=== PATIENT | male | born 1990 | race Caucasian/White ===

== ENCOUNTER 2024-12-19 18:37 | Inpatient (IN) | payer OTHER ==
[~2024-12-19] VITALS: Ht 172.7 cm; Wt 95.5 kg
[2024-12-19 19:22] LABS: BASOPHILS % (AUTO) 0.7 % (0.0-2.0); EOSINOPHILS % (AUTO) 7.3 % (1.0-6.0); HEMATOCRIT 45.3 % (41-53); HEMOGLOBIN 15.4 g/dL (13.5-17.5); LYMPHOCYTES # (AUTO) 2.7 K/uL (1.0-4.8); LYMPHOCYTES % (AUTO) 26.7 % (22.0-44.0); MEAN CORPUSCULAR HEMOGLOBIN 28.1 pg (26.0-34.0); MEAN CORPUSCULAR HGB CONC 33.9 G/dL (31.0-37.0); MEAN CORPUSCULAR VOLUME 83 fL (80-100); MONOCYTES # (AUTO) 0.8 K/uL (0.1-1.0); NEUTROPHILS # (AUTO) 5.9 K/uL (1.8-7.7); NEUTROPHILS % (AUTO) 57.3 % (40.0-70.0); PLATELET COUNT (AUTO) 204 K/uL (150-450); RED BLOOD CELL COUNT(AUTO) 5.47 MIL/uL (4.50-5.90); RED CELL DISTRIBUTION WIDTH 13.3 % (11.5-14.5); WHITE BLOOD COUNT (AUTO) 10.2 K/uL (4.5-11.0)
[2024-12-19 19:27] LABS: ANION GAP 1 mmol/L (8-16); CALCIUM, TOTAL 9.3 mg/dL (8.8-10.5); CARBON DIOXIDE 30 mmol/L (22-29); CHLORIDE 113 mmol/L (98-107); GLOMERULAR FILTR. RATE CALC > 60 mL/min (>60); GLUCOSE,RANDOM 132 mg/dL (70-110); POTASSIUM 3.7 mmol/L (3.5-5.1); SODIUM SERUM 144 mmol/L (136-145); UREA NITROGEN, BLOOD 12 mg/dL (7-18)
[2024-12-19 19:53] LABS: ALCOHOL, BLOOD (SERUM) < 3 mg/dL (0-10)
[2024-12-19 20:03] LABS: COVID AG,FIA SOURCE NASAL SWAB
[2024-12-19 20:56] LABS: SARS-COV2 (COVID) ANTIGEN,FIA Negative (Negative)
[2024-12-20] MEDS ORDERED: HALOPERIDOL LACTATE 5 MG/ML VIAL IM ONE (01:15)
[2024-12-20] MEDS ORDERED: DiphenhydrAMINE HCL 50 MG/ML VIAL IM ONE (01:15)
[2024-12-20] MEDS ORDERED: LORazepam 2 MG/ML VIAL IM ONE (01:15)
[2024-12-20 06:17] LABS: ALCOHOL, URINE DRUG SCREEN NEGATIVE (NEGATIVE); AMPHET/METH SCREEN,URINE NEGATIVE (NEGATIVE); BARBITURATE SCREEN, URINE NEGATIVE (NEGATIVE); BENZODIAZEPINES SCREEN,URINE NEGATIVE (NEGATIVE); CANNABINOID SCREEN,URINE NEGATIVE (NEGATIVE); COCAINE SCREEN,URINE NEGATIVE (NEGATIVE); METHADONE SCREEN, URINE NEGATIVE (NEGATIVE); OPIATE SCREEN,URINE NEGATIVE (NEGATIVE); PHENCYCLIDINE SCREEN,URINE NEGATIVE (NEGATIVE)
[2024-12-20 08:41] VITALS: BP 119/86; PULSE 75; RESP 19; TEMP 97.7; O2SAT 100
[2024-12-20] MEDS: SERTRALINE HCL 100 MG TABLET PO SCH (15:18)
[2024-12-20] MEDS ORDERED: MAGNESIUM HYDROXIDE SUSPENSION 30 ML UDCUP PO PRN (16:15)
[2024-12-20] MEDS ORDERED: IPRATROPIUM BROMIDE 0.5 MG/2.5 ML NEB SOLUTION NEB PRN (16:15)
[2024-12-20] MEDS ORDERED: ACETAMINOPHEN 325 MG TABLET PO PRN (16:15)
[2024-12-20] MEDS ORDERED: ONDANSETRON HCL 4 MG/2 ML VIAL IVP PRN (16:15)
[2024-12-20] MEDS ORDERED: ALBUTEROL SULFATE 2.5 MG/0.5 ML NEB SOLUTION NEB PRN (16:15)
[2024-12-20] MEDS ORDERED: BISACODYL 10 MG RECTAL RECTAL SUPPOSITORY PR PRN (16:15)
[2024-12-20] MEDS: TraZODone HCL 50 MG TABLET PO SCH (20:39)
[2024-12-20 20:45] VITALS: BP 136/86; PULSE 77; RESP 18; TEMP 97.7; O2SAT 98
[2024-12-21] MEDS: HEPARIN SODIUM,PORCINE 5,000 UNITS/ML VIAL SQ SCH
[2024-12-21 05:30] VITALS: BP 123/75; PULSE 66; RESP 18; TEMP 97.3; O2SAT 98
[2024-12-21 07:43] VITALS: BP 125/70; PULSE 59; RESP 18; TEMP 97.5; O2SAT 97
[2024-12-21] MEDS: PANTOPRAZOLE SODIUM 40 MG DR TABLET PO SCH (08:40)
[2024-12-21 20:33] VITALS: BP 146/90; PULSE 80; RESP 16; TEMP 98.1; O2SAT 96
[2024-12-21] MEDS: ZOLPIDEM TARTRATE 5 MG TABLET PO PRN (21:57)
[2024-12-22 04:14] VITALS: BP 126/82; PULSE 75; RESP 17; TEMP 97.5; O2SAT 97
[2024-12-22 08:00] VITALS: BP 130/81; PULSE 68; RESP 17; TEMP 97.5; O2SAT 98
[2024-12-22 19:13] VITALS: BP 129/78; PULSE 72; RESP 18; TEMP 98.2; O2SAT 96
[2024-12-23 07:26] VITALS: BP 125/74; PULSE 60; RESP 18; TEMP 97.7; O2SAT 98
[2024-12-23 19:25] VITALS: BP 136/74; PULSE 66; RESP 18; TEMP 98.1; O2SAT 98
[2024-12-24 04:10] VITALS: BP 121/81; PULSE 61; RESP 18; TEMP 97.7; O2SAT 98
[2024-12-24 08:03] VITALS: BP 124/70; PULSE 61; RESP 18; TEMP 97.7; O2SAT 98
[2024-12-24] MEDS: HydrOXYzine PAMOATE 25 MG CAPSULE PO PRN (17:43)
[2024-12-24 19:40] VITALS: BP 128/78; PULSE 79; RESP 20; TEMP 97.5; O2SAT 98
[2024-12-25 04:31] VITALS: BP 98/55; PULSE 59; RESP 20; TEMP 97.5; O2SAT 98
[2024-12-25 08:16] VITALS: BP 118/74; PULSE 63; RESP 18; TEMP 97.7; O2SAT 98
[2024-12-26 05:00] VITALS: BP 118/75; PULSE 59; RESP 18; TEMP 97.5; O2SAT 100
[2024-12-26 08:10] VITALS: BP 131/71; PULSE 65; RESP 19; TEMP 98.1; O2SAT 97
[2024-12-26] MEDS ORDERED: SERT-162 PO (12:00)
[2024-12-26] MEDS ORDERED: TRAZ-252 PO (12:01)
== END 2024-12-26 14:00 | DRG 885 ==
LOC: EMS 18:37 → EDH 12-20 00:25 → 6S 12-20 01:24
PROVIDERS: ADMIT Hospitalist; ATTEND Hospitalist
DX: F33.2 Major depressive disorder, recurrent severe without psychotic features (principal); R45.851 Suicidal ideations; F41.9 Anxiety disorder, unspecified; F17.200 Nicotine dependence, unspecified, uncomplicated; R73.9 Hyperglycemia, unspecified; E66.9 Obesity, unspecified; Z20.822 Contact with and (suspected) exposure to COVID-19; G47.00 Insomnia, unspecified; Z79.899 Other long term (current) drug therapy; Z68.32 Body mass index [BMI] 32.0-32.9, adult; Z71.6 Tobacco abuse counseling
CPT/HCPCS: 80048; 80307; 85025; 99285; G0480; J1644